=== PATIENT | female | born 1980 ===

== ENCOUNTER 2023-09-08 06:57 | Emergency (ER) | payer MEDICAID ==
[2023-09-08] MEDS: Meclizine 25 MG Tab PO ONE (07:48)
[2023-09-08] MEDS: Acetaminophen/HYDROcodone 325-10 MG Tab PO ONE (07:48)
[2023-09-08] MEDS: predniSONE 10 MG Tab PO ONE (07:53)
== END 2023-09-08 08:38 | disposition home or self-care (01) ==
LOC: MW.ED 06:57
DX: M54.42 Lumbago with sciatica, left side (principal); H81.10 Benign paroxysmal vertigo, unspecified ear; Z79.84 Long term (current) use of oral hypoglycemic drugs; Z79.899 Other long term (current) drug therapy
CPT/HCPCS: 99283; A9270